=== PATIENT | female | born 1985 | race Caucasian/White ===

== ENCOUNTER 2016-10-14 09:09 | Emergency (ER) | payer MEDICAID ==
[~2016-10-14] VITALS: Ht 157.5 cm; Wt 49.0 kg
[~2016-10-14 09:09] MED LIST: PREN1TAB49 PO
[2016-10-14 09:12] VITALS: Ht 157.5 cm; Wt 49.0 kg
[2016-10-14 11:19] LABS: BASOPHILS % 0.8 % (0.0-2.0); EOSINOPHILS # 0.1 10^3/ul (0.0-0.5); EOSINOPHILS % 1.2 % (0.0-7.0); HEMATOCRIT 34.8 % (37.0-47.0); HEMOGLOBIN 12.1 g/dl (12.0-16.0); LYMPHOCYTES # 1.4 10^3/ul (0.8-2.9); LYMPHOCYTES % 27.9 % (15.0-51.0); MEAN CORPUSCULAR HEMOGLOBIN 31.6 pg (29.0-33.0); MEAN CORPUSCULAR HGB CONC 34.8 g/dl (32.0-37.0); MEAN CORPUSCULAR VOLUME 90.9 fl (82.0-101.0); MEAN PLATELET VOLUME 9.7 fl (7.4-10.4); MONOCYTE # 0.5 10^3/ul (0.3-0.9); MONOCYTES % 10.8 % (0.0-11.0); NEUTROPHILS % 58.9 % (39.0-77.0); PLATELET COUNT 270 10^3/UL (140-415); RED BLOOD COUNT 3.83 10^6/ul (4.20-5.40); RED CELL DISTRIBUTION WIDTH 12.8 % (11.5-14.5)
[2016-10-14 11:24] LABS: ADD UMIC YES; UR ASCORBIC ACID NEGATIVE (NEGATIVE); UR BILIRUBIN (Dip) NEGATIVE (NEGATIVE); UR BLOOD (Dip) 3+ mg/dL (NEGATIVE); UR CLARITY CLEAR (CLEAR); UR COLOR YELLOW (YELLOW); UR GLUCOSE (Dip) NEGATIVE (NEGATIVE); UR KETONES (Dip) NEGATIVE (NEGATIVE); UR LEUKOCYTE ESTERASE (Dip) NEGATIVE Leu/ul (NEGATIVE); UR MUCUS FEW /HPF (NONE SEEN); UR NITRITE (Dip) NEGATIVE (NEGATIVE); UR RBC 7 /HPF (0-5); UR SPECIFIC GRAVITY (Dip) 1.023 (1.003-1.030); UR SQUAMOUS EPITHELIAL CELL FEW /HPF (FEW); UR TOTAL PROTEIN (Dip) NEGATIVE (NEGATIVE); UR UROBILINOGEN (Dip) NEGATIVE (NEGATIVE)
--- NOTE | 2016-10-14 12:17 | RADRPT ---
PROCEDURE: OBSTETRICAL ULTRASOUND WITH ENDOVAGINAL IMAGES CLINICAL INDICATION: Vaginal Bleed () TECHNIQUE: Multiple sonographic images of the pelvis were obtained utilizing a transabdominal and endovaginal technique. The images were reviewed on a PACS workstation. COMPARISON: None. LMP: 08/27/1969 Gestational age by LMP: 6 weeks, 6 days FINDINGS: The uterus measures 8.1 x 4.0 x 5.1 cm. There is thickening of the endometrium to 6 mm without evid ence of an intrauterine . No abnormal vascularity is identified in the endometrium. The right ovary measures 3.2 x 1.2 x 2.6 cm. The left ovary measures 3.3 x 1.7 x 2.7 cm. There is no rmal vascular flow in both ovaries. No significant ovarian lesions are seen. No significant pelvic free fluid is identified. IMPRESSION: No evidence of an intrauterine or significant endometrial thickening. If there has been a recent documented intrauterine , then findings suggest interval abortio n without evidence of retained products of conception. If there has been no recent documented intrauterine , then findings may be due to an early intrauterine although an ectopic and early demise cannot be excluded in th e setting of vaginal bleeding. In such a scenario, short-term follow-up ultrasound and serial Beta HCG measurements are recommended for further evaluation. RPTAT: EE Physician Meme Date Time Electronically viewed and signed by Physician Meme on 10/14/2016 12:17 /
[2016-10-14] MEDS ORDERED: ACET325T33 PO (12:40)
--- NOTE | 2016-10-14 14:05 | ERD ---
ER Documentation Chief Complaint Date/Time DATE: 10/14/16 TIME: 13:55 Chief Complaint VAG BLEED WITH BAD PAIN , 4 WEEKS PREG HPI 30-year-old female coming in complaining of vaginal bleeding 5 days. Patient states she believes she is 5 weeks she is being seen at [facility]. Last normal menstrual period August 27. A0. Denies back pain denies vomiting denies chest pain. ROS All systems reviewed and are negative except as per history of present illness. Medications Home Meds Active Scripts Acetaminophen* (Tylenol*) 325 Mg Tablet, 1 TAB PO Q6 Y for PAIN AND OR ELEVATED TEMP, #20 TAB Prov:ANCELMO ABBASI PA-C 10/14/16 Reported Medications Vits W-Ca,Fe,Fa(<1MG) () 1 Tab Tablet, 1 TAB PO DAILY 12/06/10 Allergies Allergies: Coded Allergies: No Known Allergies (Verified Allergy, 12/06/10) PMhx/Soc History of Surgery: No Anesthesia Reaction: No Hx Neurological Disorder: No Hx Respiratory Disorders: No Hx Cardiac Disorders: No Hx Psychiatric Problems: No Hx Miscellaneous Medical Probl: No Hx Alcohol Use: No Hx Substance Use: No Hx Tobacco Use: No Smoking Status: Never smoker Physical Exam Vitals Vital Signs Date Time Temp Pulse Resp B/P Pulse Ox O2 Delivery O2 Flow Rate FiO2 10/14/16 09:12 98.1 86 18 112/92 99 Physical Exam GENERAL: The patient is well-appearing, well-nourished, in no acute distress CHEST: Clear to auscultation bilaterally. There are no rales, wheezes or rhonchi. HEART: Regular rate and rhythm. No murmurs, clicks, rubs or gallops. No S3 or S4. ABDOMEN: Diffuse lower suprapubic tenderness. No lateralized right or left lower pelvic region tenderness. Normoactive bowel sounds or auscultation. No distention. No rigidity. BACK: No midline or flank tenderness. Result Diagram: 10/14/16 1040 Results 24 hrs Laboratory Tests Test 10/14/16 10:40 White Blood Count 5.010^3/ul Red Blood Count 3.8310^6/ul Hemoglobin 12.1g/dl Hematocrit 34.8% Mean Corpuscular Volume 90.9fl Mean Corpuscular Hemoglobin 31.6pg Mean Corpuscular Hemoglobin Concent 34.8g/dl Red Cell Distribution Width 12.8% Platelet Count 22785^3/UL Mean Platelet Volume 9.7fl Neutrophils % 58.9% Lymphocytes % 27.9% Monocytes % 10.8% Eosinophils % 1.2% Basophils % 0.8% Nucleated Red Blood Cells % 0.0/100WBC Neutrophils # (Manual) 2.910^3/ul Lymphocytes # 1.410^3/ul Monocytes # 0.510^3/ul Eosinophils # 0.110^3/ul Basophils # 0.010^3/ul Nucleated Red Blood Cells # 0.010^3/ul Urine Color YELLOW Urine Clarity CLEAR Urine pH 5.0 Urine Specific [place] 1.023 Urine Ketones NEGATIVEmg/dL Urine Nitrite NEGATIVEmg/dL Urine Bilirubin NEGATIVEmg/dL Urine Urobilinogen NEGATIVEmg/dL Urine Leukocyte Esterase NEGATIVELeu/ul Urine Microscopic RBC 7/HPF Urine Microscopic WBC 1/HPF Urine Squamous Epithelial Cells FEW/HPF Urine Mucus FEW/HPF Urine Hemoglobin 3+mg/dL Urine Glucose NEGATIVEmg/dL Urine Total Protein NEGATIVEmg/dl Beta HCG, Quantitative 283.6mIU/ml Procedures/MDM DIAGNOSTIC IMAGING REPORT Patient: SKINNY MEZA : 1985 Age: 30 Sex: F MR #: [id number] DOS: 10/14/16 1040 Ordering MD: MILVIA ABBASI PA-C Location: [facility] Room/Bed: PROCEDURE: OBSTETRICAL ULTRASOUND WITH ENDOVAGINAL IMAGES CLINICAL INDICATION: Vaginal Bleed () TECHNIQUE: Multiple sonographic images of the pelvis were obtained utilizing a transabdominal and endovaginal technique. The images were reviewed on a PACS workstation. COMPARISON: None. LMP: 08/27/1969 Gestational age by LMP: 6 weeks, 6 days FINDINGS: The uterus measures 8.1 x 4.0 x 5.1 cm. There is thickening of the endometrium to 6 mm without evidence of an intrauterine . No abnormal vascularity is identified in the endometrium. The right ovary measures 3.2 x 1.2 x 2.6 cm. The left ovary measures 3.3 x 1.7 x 2.7 cm. There is normal vascular flow in both ovaries. No significant ovarian lesions are seen. No significant pelvic free fluid is identified. IMPRESSION: No evidence of an intrauterine or significant endometrial thickening. If there has been a recent documented intrauterine , then findings suggest interval without evidence of retained products of conception. If there has been no recent documented intrauterine , then findings may be due to an early intrauterine although an ectopic and early demise cannot be excluded in the setting of vaginal bleeding. In such a scenario, short-term follow-up ultrasound and serial Beta HCG measurements are recommended for further evaluation. MDM: I have low suspicion for ectopic . Her beta quant levels are well below the discriminatory point I have low suspicion for pelvic emergency. I have low suspicion for UTI or Hemodynamic instability. Patient does not require RhoGam injection and she is Rh+. Patient is likely having a miscarriage and is recommended to follow-up with primary care within 1-2 days for close evaluation. Patient is given strict ER precautions. Departure Diagnosis: Primary Impression: Threatened Condition: Stable Patient Instructions: Possible Miscarriage (Threatened ) Referrals: [facility] YOU HAVE RECEIVED A MEDICAL SCREENING EXAM AND THE RESULTS INDICATE THAT YOU DO NOT HAVE A CONDITION THAT REQUIRES URGENT TREATMENT IN THE EMERGENCY DEPARTMENT. FURTHER EVALUATION AND TREATMENT OF YOUR CONDITION CAN WAIT UNTIL YOU ARE SEEN IN YOUR DOCTORS OFFICE WITHIN THE NEXT 1-2 DAYS. IT IS YOUR RESPONSIBILITY TO MAKE AN APPOINTMENT FOR FOLOW-UP CARE. IF YOU HAVE A PRIMARY DOCTOR --you should call your primary doctor and schedule an appointment IF YOU DO NOT HAVE A PRIMARY DOCTOR YOU CAN CALL OUR PHYSICIAN REFERRAL HOTLINE AT IF YOU CAN NOT AFFORD TO SEE A PHYSICIAN YOU CAN CHOSE FROM THE FOLLOWING [facility] [address] [facility] [address] [facility] [address] [facility] [address] [facility] [address] [facility]. [facility]. [address] Additional Instructions: FOLLOW UP WITH YOUR PRIMARY CARE PHYSICIAN TOMORROW.Return to this facility if you are not improving as expected. ANCELMO ABBASI PA-C Oct 14, 2016 14:05
== END 2016-10-14 12:55 | disposition home or self-care (01) ==
LOC: FTE 09:09
DX: O20.0 Threatened abortion (principal); R10.2 Pelvic and perineal pain; Z3A.01 Less than 8 weeks gestation of pregnancy
CPT/HCPCS: 36415; 76801; 76817; 81001; 84702; 85025; 86900; 86901; Z7502

== ENCOUNTER 2017-02-03 14:01 | Emergency (ER) | payer MEDICAID ==
[~2017-02-03] VITALS: Ht 157.5 cm; Wt 43.7 kg
[~2017-02-03 14:01] MED LIST changes: +ACET325T33 PO
[2017-02-03 14:04] VITALS: Ht 157.5 cm; Wt 43.7 kg
[2017-02-03] MEDS ORDERED: ACETAMINOPHEN 500 MG TAB PO STA (14:58)
--- NOTE | 2017-02-03 15:06 | ERD ---
ER Documentation Chief Complaint Chief Complaint VAG BLEEDEER LMP Dec HPI 31-year-old female who had a positive home test is complaining of vaginal bleeding since this morning. Patient stated that she had a heavy bleed this morning, has slowed down somewhat. Patient has pelvic pain that radiates to the back. She also had a headache. Denies fever or chills. LMP was December 17, 2016. Patient is SAB 1. Denies fever or chills. Denies dysuria. ROS All systems reviewed and are negative except as per history of present illness. Medications Home Meds Active Scripts Acetaminophen* (Tylophen*) 500 Mg Capsule, 1 CAP PO Q6H Y for PAIN AND OR ELEVATED TEMP, #20 CAP Prov:KELSI AMEZCUA MAMMOGRAPHY TECH 02/03/17 Acetaminophen* (Tylenol*) 325 Mg Tablet, 1 TAB PO Q6 Y for PAIN AND OR ELEVATED TEMP, #20 TAB Prov:ANCELMO ABBASI PA-C 10/14/16 Reported Medications Vits W-Ca,Fe,Fa(<1MG) () 1 Tab Tablet, 1 TAB PO DAILY 12/06/10 Allergies Allergies: Coded Allergies: No Known Allergies (Verified Allergy, 12/06/10) PMhx/Soc Medical and Surgical Hx: pt denies Medical Hx History of Surgery: No Anesthesia Reaction: No Hx Neurological Disorder: No Hx Respiratory Disorders: No Hx Cardiac Disorders: No Hx Psychiatric Problems: No Hx Miscellaneous Medical Probl: No Hx Alcohol Use: No Hx Substance Use: No Hx Tobacco Use: No Physical Exam Vitals Vital Signs Date Time Temp Pulse Resp B/P Pulse Ox O2 Delivery O2 Flow Rate FiO2 02/03/17 14:04 98.9 77 18 118/71 100 Physical Exam General: Well-developed, well-nourished, conscious and coherent, in no distress Skin: Warm and dry without rash, good texture and turgor Head: Normocephalic without evidence of trauma Eyes: Sclera and conjunctivae normal; pupils equal, round, and reactive to light; extraocular movements are intact Chest: Normal AP diameter. Good expansion without retractions. Nontender. Lungs are clear to auscultate bilaterally with good tidal volume Heart: Regular rate and rhythm. No murmur, rub, or gallops heard Abdomen: Soft and nontender without masses, guarding, or rebound. Bowel sounds are active. No hepatosplenomegaly Back: Without spinal or CVA tenderness Pelvis: Pelvic tenderness tenderness Extremities: Full range of motion. Good strength bilaterally. No clubbing, cyanosis, or edema. Peripheral pulses are intact. Sensation intact Neuro: Alert and oriented 4, GCS 15. Cranial nerves grossly intact. Motor and sensory exams nonfocal. Moves all extremities. Speech clear. Gait normal Result Diagram: 02/03/17 1503 Results 24 hrs Laboratory Tests Test 02/03/17 14:57 02/03/17 15:03 Urine Color YELLOW Urine Clarity SLIGHTLY CLOUDY Urine pH 6.0 Urine Specific [place] 1.025 Urine Ketones NEGATIVEmg/dL Urine Nitrite NEGATIVEmg/dL Urine Bilirubin NEGATIVEmg/dL Urine Urobilinogen NEGATIVEmg/dL Urine Leukocyte Esterase TRACELeu/ul Urine Microscopic RBC 11/HPF Urine Microscopic WBC 12/HPF Urine Squamous Epithelial Cells FEW/HPF Urine Mucus FEW/HPF Urine Hemoglobin 3+mg/dL Urine Glucose NEGATIVEmg/dL Urine Total Protein NEGATIVEmg/dl White Blood Count 9.510^3/ul Red Blood Count 4.0310^6/ul Hemoglobin 12.4g/dl Hematocrit 36.5% Mean Corpuscular Volume 90.6fl Mean Corpuscular Hemoglobin 30.8pg Mean Corpuscular Hemoglobin Concent 34.0g/dl Red Cell Distribution Width 12.3% Platelet Count 29873^3/UL Mean Platelet Volume 9.9fl Neutrophils % 66.4% Lymphocytes % 21.3% Monocytes % 10.8% Eosinophils % 1.0% Basophils % 0.3% Nucleated Red Blood Cells % 0.0/100WBC Neutrophils # 6.310^3/ul Lymphocytes # 2.010^3/ul Monocytes # 1.010^3/ul Eosinophils # 0.110^3/ul Basophils # 0.010^3/ul Nucleated Red Blood Cells # 0.010^3/ul Beta HCG, Quantitative 5530.2mIU/ml Current Medications Medications (Trade) Dose Ordered Sig/Eyad Route PRN Reason Start Time Stop Time Status Last Admin Dose Admin Acetaminophen (Tylenol Tab) 500 mg ONCE STAT PO 02/03/17 14:58 02/03/17 14:59 DC 02/03/17 15:05 PROCEDURE: US OB. CLINICAL INDICATION: Vaginal bleeding. Positive TECHNIQUE: Transabdominal and transvaginal views of the pelvis are available for review. COMPARISON: 10/14/2016 FINDINGS: Uterus: No evidence of masses and normal in size estimated at 9.3 x 6 x 4.8 cm. Endometrial cavity: Intrauterine gestational sac, yolk sac and pole are present with the following information: [place]-rump length: 0.28 cm heart rate: 83 bpm Gestational sac: 0.90 cm Ultrasound estimated gestational age: 5 weeks 6 days Crescent[place] hypoechoic subchorionic hemorrhage measures 2.7 x 2.3 x 0.8 cm. Right ovary/adnexa: Ovarian size is normal estimated at 3.1 x 1.9 x 1.6 cm. No ovarian or adnexal mass lesion is seen. Left ovary/adnexa: Ovarian size normal estimated at 2.3 x 1.6 x 1.4 cm. No ovarian or adnexal mass lesion is seen. Cul-de-sac: There is no free fluid. RPTAT:HJJR IMPRESSION: 1. Single currently viable intrauterine with an estimated gestational age of 5 weeks 6 days. 2. Subchorionic hemorrhage measuring 2.7 cm in greatest dimension. Consider follow-up evaluation. 3. Embryonic bradycardia. 4. Sonographically normal ovaries and adnexa. Physician Live Date Time Electronically viewed and signed by Jeremy Vieira Physician on 02/03/2017 16:36 JR/ CC: KELSI AMEZCUA MAMMOGRAPHY TECH Procedures/MDM ED course: CBC: Unremarkable. Beta hC.2, within the normal range of her gestational age. UA: 3+ hemoglobin, otherwise negative Blood type: O+. RhoGAM is not indicated for patient. OB ultrasound: Single currently viable intrauterine with estimated gestational age of 5 weeks 6 days, subchorionic hemorrhage measuring 2.7 cm in greatest dimension, embryonic bradycardia. Medical decision-making: Well-appearing 31-year-old female presented ED with vaginal bleeding and pelvic pain 1 day. Patient is given Tylenol in the ED for pain. Likely her vaginal bleeding and pelvic pain is due to subchorionic hemorrhage. No sign of ectopic or heterotopic . No sign of ovarian torsion or ruptured ovarian cyst. Patient was notified of the ultrasound results. She is advised to follow-up with OB in 2 days. Medications on discharge: Tylenol. Follow-up: Primary care provider in 2 days or return to ED if worse. Departure Diagnosis: Primary Impression: Vaginal bleeding in patient at less than 20 weeks ges... Condition: Stable KELSI AMEZCUA NP Feb 03, 2017 15:06
[2017-02-03 15:25] LABS: BASOPHILS % 0.3 % (0.0-2.0); EOSINOPHILS # 0.1 10^3/ul (0.0-0.5); HEMATOCRIT 36.5 % (37.0-47.0); HEMOGLOBIN 12.4 g/dl (12.0-16.0); LYMPHOCYTES % 21.3 % (15.0-51.0); MEAN CORPUSCULAR HEMOGLOBIN 30.8 pg (29.0-33.0); MEAN CORPUSCULAR VOLUME 90.6 fl (82.0-101.0); MEAN PLATELET VOLUME 9.9 fl (7.4-10.4); MONOCYTES % 10.8 % (0.0-11.0); NEUTROPHIL # 6.3 10^3/ul (1.6-7.5); NEUTROPHILS % 66.4 % (39.0-77.0); PLATELET COUNT 270 10^3/UL (140-415); RED BLOOD COUNT 4.03 10^6/ul (4.20-5.40); RED CELL DISTRIBUTION WIDTH 12.3 % (11.5-14.5); WHITE BLOOD COUNT 9.5 10^3/ul (4.8-10.8)
[2017-02-03 15:36] LABS: ADD UMIC YES; UR ASCORBIC ACID NEGATIVE (NEGATIVE); UR BILIRUBIN (Dip) NEGATIVE (NEGATIVE); UR BLOOD (Dip) 3+ mg/dL (NEGATIVE); UR CLARITY SLIGHTLY CLOUDY (CLEAR); UR COLOR YELLOW (YELLOW); UR GLUCOSE (Dip) NEGATIVE (NEGATIVE); UR KETONES (Dip) NEGATIVE (NEGATIVE); UR LEUKOCYTE ESTERASE (Dip) TRACE Leu/ul (NEGATIVE); UR MUCUS FEW /HPF (NONE SEEN); UR NITRITE (Dip) NEGATIVE (NEGATIVE); UR RBC 11 /HPF (0-5); UR SPECIFIC GRAVITY (Dip) 1.025 (1.003-1.030); UR SQUAMOUS EPITHELIAL CELL FEW /HPF (FEW); UR TOTAL PROTEIN (Dip) NEGATIVE (NEGATIVE); UR UROBILINOGEN (Dip) NEGATIVE (NEGATIVE)
--- NOTE | 2017-02-03 16:36 | RADRPT ---
PROCEDURE: US OB. CLINICAL INDICATION: Vaginal bleeding. Positive TECHNIQUE: Transabdominal and transvaginal views of the pelvis are available for review. COMPARISON: 10/14/2016 FINDINGS: Uterus: No evidence of masses and normal in size estimated at 9.3 x 6 x 4.8 cm. Endometrial cavity: Intrauterine gestational sac, yolk sac and pole are present with the foll owing information: [place]-rump length:0.28 cm heart rate:83 bpm Gestational sac:0.90 cm Ultrasound estimated gestational age:5 weeks 6 days [place] hypoechoic subchorionic hemorrhage measures 2.7 x 2.3 x 0.8 cm. Right ovary/adnexa: Ovarian size is normal estimated at 3.1 x 1.9 x 1.6 cm. No ovarian or adnexal mass lesion is seen. Left ovary/adnexa: Ovarian size normal estimated at 2.3 x 1.6 x 1.4 cm. No ovarian or adnexal mass lesion is seen. Cul-de-sac: There is no free fluid. RPTAT:HJJR IMPRESSION: 1. Single currently viable intrauterine with an estimated gestational age of 5 weeks 6 da ys. 2. Subchorionic hemorrhage measuring 2.7 cm in greatest dimension. Consider follow-up evaluation. 3. Embryonic bradycardia. 4. Sonographically normal ovaries and adnexa. Physician Live Date Time Electronically viewed and signed by Physician Live on 02/03/2017 16:36 /
[2017-02-03] MEDS ORDERED: ACET500C5 PO (17:04)
[2017-02-04] MEDS ORDERED: TYL500 PO (11:51)
== END 2017-02-03 17:14 | disposition home or self-care (01) ==
LOC: FTE 14:01
DX: O20.9 Hemorrhage in early pregnancy, unspecified (principal); R10.2 Pelvic and perineal pain; Z3A.01 Less than 8 weeks gestation of pregnancy
CPT/HCPCS: 36415; 76801; 81001; 84702; 85025; 86900; 86901; Z7502; Z7610

== ENCOUNTER 2017-02-04 08:05 | Emergency (ER) | payer MEDICAID ==
[~2017-02-04] VITALS: Ht 160 cm; Wt 44.3 kg
[~2017-02-04 08:05] MED LIST changes: +ACET500C5 PO
[2017-02-04 08:08] VITALS: Ht 160 cm; Wt 44.3 kg
--- NOTE | 2017-02-04 09:06 | ERD ---
ER Documentation Chief Complaint Chief Complaint 5 weeks preg , vag bleed with cramping , lmp nov 6 HPI This is a 31-year-old female presents to the ER for continued bleeding. Patient is currently 5 weeks . She states that she started bleeding yesterday morning, but that today her bleeding has gotten a lot worse and now she is passing blood clots. She also complains of worsening pelvic pain. Patient denies any urinary frequency or dysuria. She denies any vaginal discharge. A1 ROS 12 point review of systems was done, all negative except per HPI. Medications Home Meds Active Scripts Acetaminophen* (Tylenol*) 500 Mg Tab, 1000 MG PO Q8H Y for PAIN AND OR ELEVATED TEMP for 3 Days, TAB Prov:KOSTA DRAKE 02/04/17 Acetaminophen* (Tylophen*) 500 Mg Capsule, 1 CAP PO Q6H Y for PAIN AND OR ELEVATED TEMP, #20 CAP Prov:KELSI AMEZCUA NP 02/03/17 Acetaminophen* (Tylenol*) 325 Mg Tablet, 1 TAB PO Q6 Y for PAIN AND OR ELEVATED TEMP, #20 TAB Prov:ANCELMO ABBSAI PA-C 10/14/16 Reported Medications Vits W-Ca,Fe,Fa(<1MG) () 1 Tab Tablet, 1 TAB PO DAILY 12/06/10 Allergies Allergies: Coded Allergies: No Known Allergies (Verified Allergy, Unknown, 02/04/17) PMhx/Soc Medical and Surgical Hx: pt denies Medical Hx, pt denies Surgical Hx History of Surgery: No Anesthesia Reaction: No Hx Neurological Disorder: No Hx Respiratory Disorders: No Hx Cardiac Disorders: No Hx Psychiatric Problems: No Hx Miscellaneous Medical Probl: No Hx Alcohol Use: No Hx Substance Use: No Hx Tobacco Use: No Smoking Status: Never smoker Physical Exam Vitals Vital Signs Date Time Temp Pulse Resp B/P Pulse Ox O2 Delivery O2 Flow Rate FiO2 02/04/17 08:08 97.8 78 18 121/63 98 Physical Exam GENERAL: The patient is well developed and appropriate for usual state of health , in no apparent distress. HEENT: Atraumatic. Conjunctivae are pink. Pupils equal, round, and reactive to light. Extraocular muscles are grossly intact. Bilateral tympanic membranes are clear with no evidence of erythema, effusion or dulling of the light reflex. The oropharynx is clear with no erythema or exudates. NECK: C-spine is soft and supple. There is no cervical lymphadenopathy. CHEST: Clear to auscultation bilaterally. There are no rales, wheezes or rhonchi. HEART: Regular rate and rhythm. No murmurs, clicks, rubs or gallops. ABDOMEN: Soft, nontender and nondistended. Good bowel sounds. No rebound or guarding. No gross peritonitis. No gross organomegaly or masses. No Hollis sign or McBurney point tenderness. BACK: No midline or flank tenderness. EXTREMITIES: Equal pulses bilaterally. There is no peripheral clubbing, cyanosis or edema. No focal swelling or erythema. Full range of motion. Grossly neurovascularly intact. NEURO: Alert and oriented. Cranial nerves II through XII are intact. Motor strength in all 4 extremities with 5/5 strength. Sensation grossly intact. Normal speech and gait. SKIN: There is no apparent rash or petechia. The skin is warm and dry. Result Diagram: 02/04/17 0948 Results 24 hrs Laboratory Tests Test 02/04/17 09:48 White Blood Count 8.710^3/ul Red Blood Count 4.1510^6/ul Hemoglobin 12.7g/dl Hematocrit 37.3% Mean Corpuscular Volume 89.9fl Mean Corpuscular Hemoglobin 30.6pg Mean Corpuscular Hemoglobin Concent 34.0g/dl Red Cell Distribution Width 12.6% Platelet Count 34934^3/UL Mean Platelet Volume 10.0fl Neutrophils % 75.0% Lymphocytes % 16.7% Monocytes % 6.8% Eosinophils % 0.6% Basophils % 0.6% Nucleated Red Blood Cells % 0.0/100WBC Neutrophils # 6.510^3/ul Lymphocytes # 1.510^3/ul Monocytes # 0.610^3/ul Eosinophils # 0.110^3/ul Basophils # 0.110^3/ul Nucleated Red Blood Cells # 0.010^3/ul Urine Color YELLOW Urine Clarity CLEAR Urine pH 6.0 Urine Specific [place] 1.016 Urine Ketones NEGATIVEmg/dL Urine Nitrite NEGATIVEmg/dL Urine Bilirubin NEGATIVEmg/dL Urine Urobilinogen NEGATIVEmg/dL Urine Leukocyte Esterase NEGATIVELeu/ul Urine Microscopic RBC 4/HPF Urine Microscopic WBC 1/HPF Urine Squamous Epithelial Cells FEW/HPF Urine Hemoglobin 3+mg/dL Urine Glucose NEGATIVEmg/dL Urine Total Protein NEGATIVEmg/dl Beta HCG, Quantitative 3431.6mIU/ml [place] [id number] Radiology Main Line: [phone] DIAGNOSTIC IMAGING REPORT Patient: SKINNY MEZA : 1985 Age: 31 Sex: F MR #: [id number] DOS: 02/04/17 0853 Ordering MD: KOSTA DRAKE PA-C Location: [facility] Room/Bed: PROCEDURE: US OB. CLINICAL INDICATION: . Bleeding. Ultrasound performed yesterday with subchorionic hemorrhage and bradycardia. LAST MENSTRUAL PERIOD: 12/17/2016 TECHNIQUE: Transabdominal and transvaginal views of the pelvis are available for review. COMPARISON: 02/03/2017 FINDINGS: Intrauterine gestation is no longer visualized. Otherwise normal appearance of the uterus with thickened endometrium. Normal appearance of both ovaries with normal ovarian blood flow. No ovarian or adnexal mass lesion is seen. There is no free fluid. IMPRESSION: Intrauterine gestation is no longer visualized consistent with interval spontaneous . RPTAT:AAJJ Physician Sosa Date Time Electronically viewed and signed by Physician Sosa on 02/04/2017 10 :34 MH/ CC: KOSTA DRAKE Procedures/MDM Differential diagnosis: Threatened , missed , incomplete , ectopic , molar , UTI, pyelonephritis. Unfortunately patient does appear to have miscarried the . There is no longer an intrauterine gestational sac seen and quantitative hCG is decreasing. Patient does describe passing more tissue today and increased pain , likely a spontaneous . Patient is to follow-up with her primary care doctor within 1-2 days or return to ER sooner if symptoms worsen. My medical decision making shared with the patient she understands and agrees with plan. Departure Diagnosis: Primary Impression: Spontaneous Condition: Stable KOSTA DRAKE Feb 04, 2017 09:06
[2017-02-04 10:24] LABS: BASOPHIL # 0.1 10^3/ul (0.0-0.1); BASOPHILS % 0.6 % (0.0-2.0); EOSINOPHILS # 0.1 10^3/ul (0.0-0.5); EOSINOPHILS % 0.6 % (0.0-7.0); HEMATOCRIT 37.3 % (37.0-47.0); HEMOGLOBIN 12.7 g/dl (12.0-16.0); LYMPHOCYTES # 1.5 10^3/ul (0.8-2.9); LYMPHOCYTES % 16.7 % (15.0-51.0); MEAN CORPUSCULAR HEMOGLOBIN 30.6 pg (29.0-33.0); MEAN CORPUSCULAR VOLUME 89.9 fl (82.0-101.0); MONOCYTE # 0.6 10^3/ul (0.3-0.9); MONOCYTES % 6.8 % (0.0-11.0); NEUTROPHIL # 6.5 10^3/ul (1.6-7.5); PLATELET COUNT 266 10^3/UL (140-415); RED BLOOD COUNT 4.15 10^6/ul (4.20-5.40); RED CELL DISTRIBUTION WIDTH 12.6 % (11.5-14.5); WHITE BLOOD COUNT 8.7 10^3/ul (4.8-10.8)
[2017-02-04 10:31] LABS: ADD UMIC YES; UR ASCORBIC ACID NEGATIVE (NEGATIVE); UR BILIRUBIN (Dip) NEGATIVE (NEGATIVE); UR BLOOD (Dip) 3+ mg/dL (NEGATIVE); UR CLARITY CLEAR (CLEAR); UR COLOR YELLOW (YELLOW); UR GLUCOSE (Dip) NEGATIVE (NEGATIVE); UR KETONES (Dip) NEGATIVE (NEGATIVE); UR LEUKOCYTE ESTERASE (Dip) NEGATIVE Leu/ul (NEGATIVE); UR NITRITE (Dip) NEGATIVE (NEGATIVE); UR RBC 4 /HPF (0-5); UR SPECIFIC GRAVITY (Dip) 1.016 (1.003-1.030); UR SQUAMOUS EPITHELIAL CELL FEW /HPF (FEW); UR TOTAL PROTEIN (Dip) NEGATIVE (NEGATIVE); UR UROBILINOGEN (Dip) NEGATIVE (NEGATIVE)
--- NOTE | 2017-02-04 10:34 | RADRPT ---
PROCEDURE: US OB. CLINICAL INDICATION: . Bleeding. Ultrasound performed yesterday with subchorionic hemorrh age and bradycardia. LAST MENSTRUAL PERIOD: 12/17/2016 TECHNIQUE: Transabdominal and transvaginal views of the pelvis are available for review. COMPARISON: 02/03/2017 FINDINGS: Intrauterine gestation is no longer visualized. Otherwise normal appearance of the uterus with thick ened endometrium. Normal appearance of both ovaries with normal ovarian blood flow. No ovarian or adnexal mass lesion is seen. There is no free fluid. IMPRESSION: Intrauterine gestation is no longer visualized consistent with interval spontaneous . RPTAT:AAJJ Physician Sosa Date Time Electronically viewed and signed by Physician Sosa on 02/04/2017 10:34 /
[2017-02-04] MEDS ORDERED: TYL500 PO (11:51)
[2017-02-04 11:56] VITALS: BP 124/79; PULSE 81; RESP 17
== END 2017-02-04 11:57 | disposition home or self-care (01) ==
LOC: FTE 08:05
DX: O03.9 Complete or unspecified spontaneous abortion without complication (principal); R10.2 Pelvic and perineal pain
CPT/HCPCS: 36415; 76801; 81001; 84702; 85025; Z7502

== ENCOUNTER 2018-06-25 11:51 | Emergency (ER) | payer MEDICAID ==
[~2018-06-25] VITALS: Wt 43.9 kg
[~2018-06-25 11:51] MED LIST changes: +TYL500 PO
[2018-06-25] MEDS ORDERED: ONDANSETRON (ODT) 4 MG TAB ODT STA (13:20)
[2018-06-25] MEDS ORDERED: ACETAMINOPHEN 325 MG TAB PO ONE (13:30)
[2018-06-25] MEDS ORDERED: ONDA4TAB14 PO (15:47)
[2018-06-25] MEDS ORDERED: DOCU-144 PO (15:47)
[2018-06-25] MEDS ORDERED: ACET500C5 PO (15:47)
--- NOTE | 2018-06-25 15:58 | ERD ---
ER Documentation Chief Complaint Chief Complaint epigast pain x3d, fever x1wk. no VD, some nausea. no dysuria. HPI 32-year-old female patient with no significant past medical history presents ED complaining of epigastric pain that started about 3 days ago. States that she is felt some tactile fevers, 1 week ago. Reports that she has no vomiting however she does have some nausea. States that she is currently on her menstruation. Denies any chest pain, shortness of breath, diarrhea, constipation, fever, chills. ROS All systems reviewed and are negative except as per history of present illness. Medications Home Meds Active Scripts Ondansetron (Ondansetron Odt) 4 Mg Tab.rapdis, 4 MG PO Q6H PRN for NAUSEA AND/OR VOMITING, #10 TAB Prov:MICHELE SANDERS PA-C 06/25/18 Acetaminophen* (Tylophen*) 500 Mg Capsule, 1 CAP PO Q6H PRN for PAIN AND OR ELEVATED TEMP, #20 CAP Prov:MICHELE SANDERS PA-C 06/25/18 Docusate Sodium* (Colace*) 100 Mg Capsule, 100 MG PO TID, #30 CAP Prov:MICHELE SANDERS PA-C 06/25/18 Acetaminophen* (Tylenol*) 500 Mg Tab, 1000 MG PO Q8H PRN for PAIN AND OR ELEVATED TEMP for 3 Days, TAB Prov:KOSTA DRAKE 02/04/17 Acetaminophen* (Tylophen*) 500 Mg Capsule, 1 CAP PO Q6H PRN for PAIN AND OR ELEVATED TEMP, #20 CAP Prov:KELSI AMEZCUA NP 02/03/17 Acetaminophen* (Tylenol*) 325 Mg Tablet, 1 TAB PO Q6 PRN for PAIN AND OR ELEVATED TEMP, #20 TAB Prov:ANCELMO ABBASI PA-C 10/14/16 Reported Medications Vits W-Ca,Fe,Fa(<1MG) () 1 Tab Tablet, 1 TAB PO DAILY 12/06/10 Allergies Allergies: Coded Allergies: No Known Allergies (Verified Allergy, Unknown, 02/04/17) PMhx/Soc Medical and Surgical Hx: pt denies Medical Hx, pt denies Surgical Hx History of Surgery: No Anesthesia Reaction: No Hx Neurological Disorder: No Hx Respiratory Disorders: No Hx Cardiac Disorders: No Hx Psychiatric Problems: No Hx Miscellaneous Medical Probl: No Hx Alcohol Use: No Hx Substance Use: No Hx Tobacco Use: No Smoking Status: Never smoker FmHx Family History: No diabetes, No coronary disease Physical Exam Vitals Vital Signs Date Temp Pulse Resp B/P (MAP) Pulse Ox O2 O2 Flow FiO2 Time Delivery Rate 06/25/18 98.6 65 16 124/58 100 12:14 (80) Physical Exam Const: Ouy-bit-kkmgnxcht, well-nourished. In no acute distress. Head: Atraumatic, normocephalic Eyes: Normal Conjunctiva without injection. No purulent discharge. ENT: Normal external ear, nose. Moist oropharynx without tonsillar exudates. Non-erythematous pharynx. Uvula midline. No drooling. No trismus. Neck: No cervical midline tenderness. Full range of motion. No meningismus. No cervical lymphadenopathy. No JVD. Resp: Clear to auscultation bilaterally. No wheezing, rhonchi, rales, or crackles. No accessory muscle use. No retractions. Cardio: Regular rate and rhythm. No murmurs, rubs or gallops. Abd: Soft, epigastric tenderness, non distended. Normal bowel sounds. No palpable masses. No rebound tenderness. No guarding. Negative McBurney's point. Negative psoas sign. Negative obturator sign.. Skin: No petechiae or rashes Back: No midline tenderness. No CVA tenderness. Tenderness palpation of the right lumbar muscles. Ext: No cyanosis, or edema. Neur: Awake and alert. Normal gait. Normal coordination. Psych: Normal Mood and Affect Result Diagram: 06/25/18 1404 06/25/18 1404 Results 24 hrs Laboratory Tests Test 06/25/18 14:04 06/25/18 14:10 White Blood Count 8.2 10^3/ul Red Blood Count 4.09 10^6/ul Hemoglobin 12.6 g/dl Hematocrit 37.8 % Mean Corpuscular Volume 92.4 fl Mean Corpuscular Hemoglobin 30.8 pg Mean Corpuscular Hemoglobin Concent 33.3 g/dl Red Cell Distribution Width 12.4 % Platelet Count 300 10^3/UL Mean Platelet Volume 9.8 fl Immature Granulocytes % 0.200 % Neutrophils % 80.7 % Lymphocytes % 13.6 % Monocytes % 5.1 % Eosinophils % 0.0 % Basophils % 0.4 % Nucleated Red Blood Cells % 0.0 /100WBC Immature Granulocytes # 0.020 10^3/ul Neutrophils # 6.7 10^3/ul Lymphocytes # 1.1 10^3/ul Monocytes # 0.4 10^3/ul Eosinophils # 0.0 10^3/ul Basophils # 0.0 10^3/ul Nucleated Red Blood Cells # 0.0 10^3/ul Urine Color YELLOW Urine Clarity SLIGHTLY CLOUDY Urine pH 5.0 Urine Specific Percy 1.025 Urine Ketones TRACE mg/dL Urine Nitrite NEGATIVE mg/dL Urine Bilirubin NEGATIVE mg/dL Urine Urobilinogen NEGATIVE mg/dL Urine Leukocyte Esterase NEGATIVE Nikolai/ul Urine Microscopic RBC 8 /HPF Urine Microscopic WBC 3 /HPF Urine Squamous Epithelial Cells FEW /HPF Urine Mucus FEW /HPF Urine Hemoglobin 3+ mg/dL Urine Glucose NEGATIVE mg/dL Urine Total Protein NEGATIVE mg/dl Sodium Level 143 mmol/L Potassium Level 3.8 mmol/L Chloride Level 105 mmol/L Carbon Dioxide Level 28 mmol/L Anion Gap 10 Blood Urea Nitrogen 18 mg/dl Creatinine 0.51 mg/dl Est Glomerular Filtrat Rate mL/min > 60 mL/min Glucose Level 96 mg/dl Calcium Level 9.7 mg/dl Total Bilirubin 0.8 mg/dl Direct Bilirubin 0.00 mg/dl Indirect Bilirubin 0.8 mg/dl Aspartate Amino Transf (AST/SGOT) 19 IU/L Alanine Aminotransferase (ALT/SGPT) 24 IU/L Alkaline Phosphatase 58 IU/L Total Protein 8.0 g/dl Albumin 4.7 g/dl Globulin 3.30 g/dl Albumin/Globulin Ratio 1.42 Lipase 38 U/L POC Beta HCG, Qualitative NEGATIVE Current Medications Medications Dose Sig/Eyad Start Time Status Last (Trade) Ordered Route PRN Stop Time Admin Dose Reason Admin 650 mg ONCE ONCE 06/25/18 DC 06/25/18 Acetaminophen PO 13:30 14:51 (Tylenol 06/25/18 13:31 Tab) Ondansetron 4 mg ONCE STAT 06/25/18 DC 06/25/18 HCl (Zofran ODT 13:20 14:51 Odt) 06/25/18 13:21 Procedures/MDM 32-year-old female patient with no significant past medical history presents ED complaining of right lumbar muscles, epigastric pain. Patient is afebrile and nontoxic-appearing. Patient was further worked up with CBC, CMP, lipase, UA, urine . Patient's pain and symptoms have improved after treatment with Zofran 4 mg, Tylenol 325 mg. CBC: No leukocytosis. No e/o of systemic infection. No e/o anemia. CMP: No e/o severe acidosis, alkalosis, renal failure, diabetic ketoacidosis, liver disease Lipase within normal limits. Urine: No leukocyte esterase, no nitrites, no hematuria. Urine : Negative IMPRESSION: Unremarkable lumbar spine series. Low suspicion for ectopic , ovarian torsion, gastritis, GERD, peptic ulcer disease, cholecystitis, choledocholithiasis, cholangitis, pancreatitis, appendicitis, bowel obstruction, ileus, volvulus, nephrolithiasis, pyelonephritis, hepatitis, perforated viscus, diverticulitis, strangulated/incarcerated hernia, DKA, acute abdomen, mesenteric ischemia or other emergent conditions. Diagnosis: Epigastric abdominal pain, back pain, constipation Discharge medications: Tylenol, Zofran, Colace Follow up with primary care physician in 1-2 days. Instructed patient to return to the ED sooner for any worsening symptoms. Patient's questions were answered. Patient is hemodynamically stable. Patient understood and agreed with discharge plan. Patient discharged stable. Disclaimer: Inadvertent spelling and grammatical errors are likely due to EHR/dictation software use and do not reflect on the overall quality of patient care. Also, please note that the electronic time recorded on this note does not necessarily reflect the actual time of the patient encounter. Departure Diagnosis: Primary Impression: Epigastric abdominal pain Additional Impressions: Back pain Back pain location: back pain in unspecified location Chronicity: unspecified Back pain laterality: unspecified Qualified Codes: M54.9 - Dorsalgia, unspecified Constipation Constipation type: unspecified constipation type Qualified Codes: K59.00 - Constipation, unspecified Condition: Stable Patient Instructions: Back Pain (Acute Or Chronic), Constipation (Adult), Gastritis Vs. Ulcer, Epigastric Pain (Uncertain Cause) Referrals: [facility] YOU HAVE RECEIVED A MEDICAL SCREENING EXAM AND THE RESULTS INDICATE THAT YOU DO NOT HAVE A CONDITION THAT REQUIRES URGENT TREATMENT IN THE EMERGENCY DEPARTMENT. FURTHER EVALUATION AND TREATMENT OF YOUR CONDITION CAN WAIT UNTIL YOU ARE SEEN IN YOUR DOCTORS OFFICE WITHIN THE NEXT 1-2 DAYS. IT IS YOUR RESPONSIBILITY TO MAKE AN APPOINTMENT FOR FOLOW-UP CARE. IF YOU HAVE A PRIMARY DOCTOR --you should call your primary doctor and schedule an appointment IF YOU DO NOT HAVE A PRIMARY DOCTOR YOU CAN CALL OUR PHYSICIAN REFERRAL HOTLINE AT IF YOU CAN NOT AFFORD TO SEE A PHYSICIAN YOU CAN CH[facility] THE FO[facility] [address] [facility] [address] [facility] [address] [facility] [address] [facility] [address] [facility]. [facility] [address] [facility]. [facility] YOU HAVE RECEIVED A MEDICAL SCREENING EXAM AND THE RESULTS INDICATE THAT YOU DO NOT HAVE A CONDITION THAT REQUIRES URGENT TREATMENT IN THE EMERGENCY DEPARTMENT. FURTHER EVALUATION AND TREATMENT OF YOUR CONDITION CAN WAIT UNTIL YOU ARE SEEN IN YOUR DOCTORS OFFICE WITHIN THE NEXT 1-2 DAYS. IT IS YOUR RESPONSIBILITY TO MAKE AN APPOINTMENT FOR FOLOW-UP CARE. IF YOU HAVE A PRIMARY DOCTOR --you should call your primary doctor and schedule and appointment IF YOU DO NOT HAVE A PRIMARY DOCTOR YOU CAN CALL OUR PHYSICIAN REFERRAL HOTLINE AT . IF YOU CAN NOT AFFORD TO SEE A PHYSICIAN YOU CAN CHOSE FROM THE FOLLOWING [facility] INSTITUTIONS: [facility] [address] [place] [address] [facility] [address] [place] [address] [facility] [address] [place] [address] [facility]RGENT [facility]/SPECIALTIES Additional Instructions: Llame al doctor MAANA y david shaina TERRELL PARA DENTRO DE 2-3 GARNETT.Dgale a la secretaria que nosotros le instruimos hacer esta terrell.Avise o llame si giron condicin se empeora antes de la terrell. Regresa aqui si peor o no mejor. MICHELE ASNDERS PA-C 15, 2019 15:58
[2018-06-25 16:05] VITALS: BP 120/68; PULSE 69; RESP 18
== END 2018-06-25 16:06 | disposition home or self-care (01) ==
LOC: FTE 11:51
DX: M54.5 Low back pain (principal); K59.00 Constipation, unspecified
CPT/HCPCS: 36415; 72100; 80053; 81001; 81025; 83690; 85025; Z7502; Z7610